=== PATIENT | male | born 1960 | race Caucasian/White ===

== ENCOUNTER 2019-02-14 17:09 | Emergency (ER) | payer SELFPAY ==
[~2019-02-14 17:09] MED LIST: ISOVUE-370 76%-LOCM 1 ML ONE
[2019-02-14] MEDS ORDERED: HYDROmorphone 0.5 MG/0.5 ML SYRINGE ONE ×2 (17:53→20:11)
[2019-02-14] MEDS ORDERED: Ketorolac Tromethamine 30 MG/ML VIAL ONE (17:53)
[2019-02-14 18:29] LABS: Bilirubin Negative (Negative); Blood, Urine Negative (Negative); Clarity Clear (Clear); Glucose, Urine (Dipstick) Normal (Negative); Leukocyte Negative Leu/uL (Negative); Nitrite Negative (Negative); Protein, Urine (Dipstick) Negative (Neg-Trace); Urobilinogen Normal mg/dL (Less than 2)
[2019-02-14] MEDS ORDERED: Lidocaine 4% Cream 5 GM TUBE w/ Tegaderm ONE (18:36)
--- NOTE | 2019-02-14 18:37 | ULT ---
TESTICULAR ULTRASOUND: 02/14/19 HISTORY: Patient is having testicular pain. History of the right testicle removed years ago. Very limited examination was performed. The patient refused to continue with the exam. The left testi faby does appear to be normal in size. Mildly heterogeneous in appearance but no focal mass. DOPPLER EVALUATION WITH SPECTRAL ANALYSIS: Flow was shown within the left testis. IMPRESSION: Diffusely heterogeneous appearing testicle. No focal discrete mass. No evidence for torsion. POS: [facility]
--- NOTE | 2019-02-14 20:04 | CT ---
CT OF ABDOMEN AND PELVIS PERFORMED WITH CONTRAST ENHANCEMENT: 02/14/19 HISTORY: Abdominal and testicular pain. COMPARISON: A testicular ultrasound of 02/14/[address] of abdomen dated 12/14/17. The lung bases are clear of any infiltrative process. The liver, spleen, and pancreas regions show no focal abnormalities. The gallbladder is mildly distended. No inflammatory change. Right and left adrenal glands are normal in appearance. Right and left kidneys are normal in size. No obstruction or renal calculi. No significant periaortic or mesenteric adenopathy. Postoperative ann ges of the anterior abdominal wall are seen. CT OF PELVIS PERFORMED WITH CONTRAST ENHANCEMENT: There is no evidence of adenopathy, mass or free fluid. Fat containing left inguinal hernia is seen. Review of osseous structures show postoperative changes of the lower lumbar spine. No acute findings. IMPRESSION: 1. No acute findings of the abdomen or pelvis. 2. Postoperative change along the anterior abdominal wall. 3. Fat containing left inguinal hernia. POS: [facility]
[2019-02-14] MEDS ORDERED: cefTRIAXone\\ROCEPHIN 2 GM VIAL ONE (20:11)
[2019-02-14] MEDS ORDERED: cefTRIAXone\\ROCEPHIN 1 GM VIAL ONE (20:16)
== END 2019-02-14 22:13 | disposition home or self-care (01) ==
LOC: ERS 17:09
DX: N45.1 Epididymitis (principal); N41.9 Inflammatory disease of prostate, unspecified; I10 Essential (primary) hypertension; E11.9 Type 2 diabetes mellitus without complications; E78.5 Hyperlipidemia, unspecified; F31.9 Bipolar disorder, unspecified; F20.9 Schizophrenia, unspecified
CPT/HCPCS: 74177; 76870; 81003; 87086; 93976; 96365; 96375; 96376; J0696; J1170; J1885; Q9966